=== PATIENT | female | born 1970 | race Two or more races ===

== ENCOUNTER 2017-01-21 11:11 | Emergency (ER) | payer SELFPAY ==
[2017-01-21 11:28] VITALS: BP 127/83
[2017-01-21] MEDS ORDERED: Sodium Chloride 0.9% 10 ML Syringe FLUSH PRN ×2 (12:01→14:11)
--- NOTE | 2017-01-21 12:10 | EDM.PDOC ---
ED HPI GENERAL MEDICAL PROBLEM - General Chief Complaint: Abdominal Pain Stated Complaint: ABDOMINAL PAIN Time Seen by Provider: 01/21/17 11:49 Source of Information: Reports: Patient History Limitations: Reports: No Limitations - History of Present Illness INITIAL COMMENTS - FREE TEXT/NARRATIVE: Patient is a 46 y/o kiswahili speaking female who presents to the E.D. complaining of left lower quadrant pain. States pain started two wks ago. Pain is intermittent with no known provoking factors. Described as crampy, sharp, and stinging in nature. Pain is localized with no radiation. Has taken tylenol and ibuprofen for pain relief. Currently rated a 4/10. She has no history of ovarian cysts, kidney stones, or diverituculi/diverticulitis. She has never had a EGD/Colonoscopy. Currently is sexually active with one male for almost 1 year utilizing protection. last menstrual cycle was 2 months ago states their is a chance of being . She denies fever/chills, n/v, cp, sob, dysuria, diarrhea, constipation, blood in stool, acid reflux, and or any additional complaints. She has history of DM 2 and is currently taking no medications. She has no PCP here in [place] since moving here 2 months ago. She denies surgical history as well. Left Lower Abdominal Pain Score (Numeric/FACES): 5 - Related Data Allergies Allergy/AdvReac Type Severity Reaction Status Date / Time No Known Allergies Allergy Verified 01/21/17 11:28 Home Meds: Home Meds . 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 Denies: Bloody Stool, Constipation, Diarrhea, Nausea, Vomiting : Denies: Dysuria, Frequency, Urgency Musculoskeletal: Denies: Back Pain Neurological: Denies: Dizziness ED EXAM, GI/ABD - Physical Exam Exam: See Below Exam Limited By: Language Barrier General Appearance: Alert, WD/WN, No Apparent Distress Ears: Hearing Grossly Normal Nose: Normal Inspection Throat/Mouth: Normal Voice, No Airway Compromise Head: Atraumatic, Normocephalic Neck: Normal Inspection, Supple, Non-Tender Respiratory/Chest: No Respiratory Distress, Lungs Clear, Normal Breath Sounds, Chest Non-Tender Cardiovascular: Normal Peripheral Pulses, Regular Rate, Rhythm GI/Abdominal Exam: Normal Bowel Sounds, Soft, No Organomegaly, Tender (to the left lower quadrant. ) Back Exam: Normal Inspection Neurological: Alert, Oriented, CN II-XII Intact, Normal Cognition, No Motor/ Sensory Deficits Psychiatric: Normal Affect, Normal Mood Skin Exam: Warm, Dry, Intact, Normal Color Course - Vital Signs Last Recorded V/S: Last Vital Signs Temp 97.3 F 01/21/17 11:19 Pulse 66 01/21/17 11:19 Resp 20 01/21/17 11:19 BP 127/83 01/21/17 11:19 Pulse Ox 98 01/21/17 11:19 - Orders/Labs/Meds Orders: Active Orders 24 hr Category Date Time Status Peripheral IV Care [RC] . DIRECTED Care 01/21/17 12:01 Active Sodium Chloride 0.9% [Normal Saline] 1,000 ml Med 01/21/17 12:15 Active IV ASDIRECTED Sodium Chloride 0.9% [Saline Flush] Med 01/21/17 12:01 Active 10 ml FLUSH ASDIRECTED PRN Sodium Chloride 0.9% [Saline Flush] Med 01/21/17 14:11 Active 10 ml FLUSH ONETIME PRN Peripheral IV Insertion Adult [OM.PC] Stat Oth 01/21/17 12:01 Ordered Medication Orders Sodium Chloride (Normal Saline) 1,000 mls @ 150 mls/hr IV ASDIRECTED TETE Last Admin: 01/21/17 12:17 Dose: 150 mls/hr Sodium Chloride (Saline Flush) 10 ml FLUSH ASDIRECTED PRN PRN Reason: Keep Vein Open Last Admin: 01/21/17 12:19 Dose: 10 ml Sodium Chloride (Saline Flush) 10 ml FLUSH ONETIME PRN PRN Reason: IV FLUSH Last Admin: 01/21/17 14:45 Dose: 10 ml Labs: Laboratory Tests 01/21/17 01/21/17 01/21/17 Range/Units 11:36 12:28 12:28 WBC 7.58 (3.98-10.04) K/mm3 RBC 4.84 (3.98-5.22) M/mm3 Hgb 13.5 (11.2-15.7) gm/L Hct 39.6 (34.1-44.9) % MCV 81.8 (79.4-94.8) fl MCH 27.9 (25.6-32.2) pg MCHC 34.1 (32.2-35.5) g/dl RDW Std Deviation 36.8 (36.4-46.3) fL Plt Count 274 (182-369) K/mm3 MPV 10.3 (9.4-12.3) fl Neut % (Auto) 57.7 (34.0-71.1) % Lymph % (Auto) 31.0 (19.3-51.7) % [place] % (Auto) 8.7 (4.7-12.5) % Eos % (Auto) 2.2 (0.7-5.8) Baso % (Auto) 0.3 (0.1-1.2) % Neut # (Auto) 4.37 (1.56-6.13) K/mm3 Lymph # (Auto) 2.35 (1.18-3.74) K/mm3 [place] # (Auto) 0.66 H (0.24-0.36) K/mm3 Eos # (Auto) 0.17 (0.04-0.36) K/mm3 Baso # (Auto) 0.02 (0.01-0.08) K/mm3 Sodium 141 (136-145) mEq/L Potassium 3.6 (3.5-5.1) mEq/L Chloride 105 (98-107) mEq/L Carbon Dioxide 27 (21-32) mEq/L Anion Gap 12.6 (5-15) BUN 6 L (7-18) mg/dL Creatinine 0.5 L (0.55-1.02) mg/dL Est Cr Clr Drug Dosing 118.77 mL/min Estimated GFR (MDRD) > 60 (>60) mL/min BUN/Creatinine Ratio 12.0 L (14-18) Glucose 127 H (74-106) mg/dL POC Glucose 125 H (70-105) mg/dL Calcium 8.9 (8.5-10.1) mg/dL Total Bilirubin 0.5 (0.2-1.0) mg/dL AST 16 (15-37) U/L ALT 30 (14-59) U/L Alkaline Phosphatase 91 (46-116) U/L C-Reactive Protein 1.3 H* (<1.0) mg/dL Total Protein 7.7 (6.4-8.2) g/dl Albumin 3.8 (3.4-5.0) g/dl Globulin 3.9 gm/dL Albumin/Globulin Ratio 1.0 (1-2) Lipase 65 L (73-393) U/L HCG, Qual (NEGATIVE) Urine Color (Yellow) Urine Appearance (Clear) Urine pH (5.0-8.0) Ur Specific [place] (1.005-1.030) Urine Protein (Negative) Urine Glucose (UA) (Negative) Urine Ketones (Negative) Urine Occult Blood (Negative) Urine Nitrite (Negative) Urine Bilirubin (Negative) Urine Urobilinogen (0.2-1.0) Ur Leukocyte Esterase (Negative) Urine RBC (0-5) /hpf Urine WBC (0-5) /hpf Ur Epithelial Cells Urine Bacteria (FEW) /hpf Urine Mucus (FEW) /hpf 01/21/17 01/21/17 Range/Units 12:28 12:55 WBC (3.98-10.04) K/mm3 RBC (3.98-5.22) M/mm3 Hgb (11.2-15.7) gm/L Hct (34.1-44.9) % MCV (79.4-94.8) fl MCH (25.6-32.2) pg MCHC (32.2-35.5) g/dl RDW Std Deviation (36.4-46.3) fL Plt Count (182-369) K/mm3 MPV (9.4-12.3) fl Neut % (Auto) (34.0-71.1) % Lymph % (Auto) (19.3-51.7) % [place] % (Auto) (4.7-12.5) % Eos % (Auto) (0.7-5.8) Baso % (Auto) (0.1-1.2) % Neut # (Auto) (1.56-6.13) K/mm3 Lymph # (Auto) (1.18-3.74) K/mm3 [place] # (Auto) (0.24-0.36) K/mm3 Eos # (Auto) (0.04-0.36) K/mm3 Baso # (Auto) (0.01-0.08) K/mm3 Sodium (136-145) mEq/L Potassium (3.5-5.1) mEq/L Chloride (98-107) mEq/L Carbon Dioxide (21-32) mEq/L Anion Gap (5-15) BUN (7-18) mg/dL Creatinine (0.55-1.02) mg/dL Est Cr Clr Drug Dosing mL/min Estimated GFR (MDRD) (>60) mL/min BUN/Creatinine Ratio (14-18) Glucose (74-106) mg/dL POC Glucose (70-105) mg/dL Calcium (8.5-10.1) mg/dL Total Bilirubin (0.2-1.0) mg/dL AST (15-37) U/L ALT (14-59) U/L Alkaline Phosphatase (46-116) U/L C-Reactive Protein (<1.0) mg/dL Total Protein (6.4-8.2) g/dl Albumin (3.4-5.0) g/dl Globulin gm/dL Albumin/Globulin Ratio (1-2) Lipase (73-393) U/L HCG, Qual Negative (NEGATIVE) Urine Color Light yellow (Yellow) Urine Appearance Clear (Clear) Urine pH 7.5 (5.0-8.0) Ur Specific [place] 1.015 (1.005-1.030) Urine Protein Negative (Negative) Urine Glucose (UA) Negative (Negative) Urine Ketones Negative (Negative) Urine Occult Blood Negative (Negative) Urine Nitrite Negative (Negative) Urine Bilirubin Negative (Negative) Urine Urobilinogen 0.2 (0.2-1.0) Ur Leukocyte Esterase Negative (Negative) Urine RBC Not seen (0-5) /hpf Urine WBC Not seen (0-5) /hpf Ur Epithelial Cells Not Reportable Urine Bacteria Not seen (FEW) /hpf Urine Mucus Not seen (FEW) /hpf Meds: Medications Generic Name Dose Route Start Last Admin Trade Name Freq PRN Reason Stop Dose Admin Sodium Chloride 1,000 mls @ 150 mls/hr 01/21/17 12:15 01/21/17 12:17 Normal Saline IV 150 mls/hr ASDIRECTED TETE Administration Sodium Chloride 10 ml 01/21/17 12:01 01/21/17 12:19 Saline Flush FLUSH 10 ml ASDIRECTED PRN Administration Keep Vein Open Sodium Chloride 10 ml 01/21/17 14:11 01/21/17 14:45 Saline Flush FLUSH 10 ml ONETIME PRN Administration IV FLUSH Discontinued Medications Generic Name Dose Route Start Last Admin Trade Name Camille PRN Reason Stop Dose Admin Diatrizoate Meglum/Diatrizoate Sod 90 ml 01/21/17 14:11 01/21/17 14:44 Gastrografin 37% PO 01/21/17 14:12 90 ml ONETIME ONE Administration Iopamidol 150 ml 01/21/17 14:11 01/21/17 14:45 Isovue-300 (61%) IVPUSH 01/21/17 14:12 125 ml ONETIME ONE Administration - Re-Assessments/Exams Free Text/Narrative Re-Assessment/Exam: IV was established normal saline. Initial labs and studies include CBC, chem 14 , hCG, CRP, lipase, and UA. Labs reviewed: CBC essentially normal. Sodium 141, potassium 3.6, AG is 12.6, creatinine 0.5, glucose 127, LFTs within normal limits, CRP 3.1.3, lipase 65, hCG negative. UA was negative for concerning findings. CT the abdomen and pelvis impression: Incidental findings. Nothing acute is appreciated. 01/21/17 16:21 Pain has subsided. Reviewed labs and CT study with patient. She is ready to be discharged home. Discharge instructions as documented. Departure - Departure Time of Disposition: 16:21 Disposition: Home, Self-Care 01 Condition: Good Clinical Impression: Abdominal pain Qualifiers: Abdominal location: periumbilical Qualified Code(s): R10.33 - Periumbilical pain - Discharge Information Instructions: Abdominal Pain, Adult, [id number] Referrals: PCP,None [Primary Care Provider] - Cece Dee PA [Physician Keg Washer] - Forms: ED Department Discharge Additional Instructions: As discussed CT the abdomen and pelvis did not reveal any acute findings. Lab work was essentially normal. Will have you follow-up with her PCP at [facility] in the next 1-2 weeks for reevaluation and treatment. Return to the ED as needed for any new or worsening symptoms. - My Orders Last 24 Hours: My Active Orders 01/21/17 12:01 Peripheral IV Care [RC] . DIRECTED Sodium Chloride 0.9% [Saline Flush] 10 ml FLUSH ASDIRECTED PRN Peripheral IV Insertion Adult [OM.PC] Stat 01/21/17 12:15 Sodium Chloride 0.9% [Normal Saline] 1,000 ml IV ASDIRECTED 01/21/17 14:11 Sodium Chloride 0.9% [Saline Flush] 10 ml FLUSH ONETIME PRN - Assessment/Plan Last 24 Hours: My Active Orders 01/21/17 12:01 Peripheral IV Care [RC] . DIRECTED Sodium Chloride 0.9% [Saline Flush] 10 ml FLUSH ASDIRECTED PRN Peripheral IV Insertion Adult [OM.PC] Stat 01/21/17 12:15 Sodium Chloride 0.9% [Normal Saline] 1,000 ml IV ASDIRECTED 01/21/17 14:11 Sodium Chloride 0.9% [Saline Flush] 10 ml FLUSH ONETIME PRN
[2017-01-21] MEDS ORDERED: Sodium Chloride 0.9% 1,000 ML IV SCH (12:15)
[2017-01-21] MEDS ORDERED: Diatrizoate Meglumine/Diatrizoate Sodium 37% 120 ML Bottle PO ONE (14:11)
[2017-01-21] MEDS ORDERED: Iopamidol 612 MG/ML 150 ML Bottle IVPUSH ONE (14:11)
--- NOTE | 2017-01-21 15:26 | CT ---
CT abdomen and pelvis Technique: Multiple axial sections were obtained from above the dome of the diaphragm inferiorly through the pubic symphysis. Intravenous and oral contrast was utilized. Delayed images were obtained through the bladder. Comparison: No previous study. Findings: Small portion of the visualized lung bases shows nothing acute. Liver shows no focal parenchymal abnormality. Small hiatal hernia is seen. Spleen appears within normal limits. Adrenal glands show no nodule. Gallbladder shows no calcified gallstones. Kidneys show contrast enhancement without hydronephrosis or mass. Aorta shows no aneurysmal dilatation. No retroperitoneal adenopathy or mesenteric abnormalities are seen. No pelvic mass or adenopathy is identified. Appendix is within the right upper quadrant adjacent to the inferior liver. Appendix is normal in size. No inflammatory change or free fluid is seen. No bowel dilatation is seen. Small fat-containing umbilical hernia is noted. Bone window settings were reviewed showing small limbus type vertebra involving the superior and anterior endplates of L4 and L5. Delayed images shows contrast within the distal ureters and bladder. Impression: 1. Incidental findings. Nothing acute is appreciated. Diagnostic code #2
== END 2017-01-21 16:43 | disposition home or self-care (01) ==
LOC: JD.ED 11:11
DX: R10.33 Periumbilical pain (principal); E11.9 Type 2 diabetes mellitus without complications
CPT/HCPCS: 36415; 74177; 80053; 81001; 82962; 83690; 84703; 85025; 86140; 96360; 96361; 99284; J7040; J7050; Q9963; Q9967

== ENCOUNTER 2019-03-23 09:57 | Emergency (ER) | payer SELFPAY ==
[2019-03-23 10:12] VITALS: BP 156/96; PULSE 74
[2019-03-23] MEDS ORDERED: Sodium Chloride 0.9% 10 ML Syringe FLUSH PRN (10:20)
--- NOTE | 2019-03-23 10:49 | EDM.PDOC ---
ED HPI GENERAL MEDICAL PROBLEM - General Chief Complaint: ENT Problem Stated Complaint: SORE THROAT Time Seen by Provider: 03/23/19 10:51 - History of Present Illness INITIAL COMMENTS - FREE TEXT/NARRATIVE: Since unfortunate 48-year-old female who presents emergency Department today with complaint of sore throat. She reports that she was in her normal state of health until 2 weeks ago and she started having a sore throat and chest pain. Patient describes her pain as a "pressure". The anterior portion of her left chest. Patient has history of diabetes no known cardiac disease patient reports she has not seen a copy coordinator in the past has not had a stress test or a station. No nausea no vomiting no fever no chills no shortness of breath or difficulty swallowing. Patient is tender to palpation across the anterior surface of her chest long left sternal border. 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 Denies: Throat Swelling Respiratory: Denies: Shortness of Breath, Wheezing Cardiovascular: Reports: Chest Pain. Denies: Blood Pressure Problem, Claudication, Dyspnea on Exertion GI/Abdominal: Denies: Abdominal Pain, Nausea, Vomiting ED EXAM, GENERAL - Physical Exam Exam: See Below Exam Limited By: Other (Patient is Citizen Of [place]-speaking only and conflict resolution professional was present in room) General Appearance: Alert, Mild Distress Ears: Normal External Exam, Normal Canal, Hearing Grossly Normal, Normal TMs Throat/Mouth: Normal Inspection, Normal Lips, Normal Teeth, Normal Gums, Normal Oropharynx, Normal Voice, No Airway Compromise, Other (Pulses 2+ bilaterally) Head: Atraumatic, Normocephalic Neck: Normal Inspection, Supple, Non-Tender, Full Range of Motion Respiratory/Chest: No Respiratory Distress, Lungs Clear, Normal Breath Sounds, No Accessory Muscle Use, Chest Non-Tender Cardiovascular: Normal Peripheral Pulses, Regular Rate, Rhythm, No Edema, No Gallop, No JVD, No Murmur, No Rub, Other (Mild tenderness left sternal border, at the third fourth intercostal space) GI/Abdominal: Normal Bowel Sounds, Soft, Non-Tender, No Organomegaly, No Distention, No Abnormal Bruit, No Mass Back Exam: Normal Inspection, Full Range of Motion, NT Extremities: Normal Inspection, Normal Range of Motion, Non-Tender, Normal Capillary Refill, No Pedal Edema Neurological: Alert, Oriented, CN II-XII Intact, Normal Cognition, Normal Gait, Normal Reflexes, No Motor/Sensory Deficits Skin Exam: Warm, Dry, Intact, Normal Color, No Rash Lymphatic: No Adenopathy EKG INTERPRETATION EKG Date: 03/23/19 Time: 10:49 Rhythm: NSR Arthur: Normal P-Wave: Present QRS: Normal ST-T: Normal QT: Normal Course - Vital Signs Last Recorded V/S: Last Vital Signs Temp 98.3 F 03/23/19 10:09 Pulse 74 03/23/19 10:09 Resp 16 03/23/19 10:09 BP 156/96 H 03/23/19 10:09 Pulse Ox 97 03/23/19 10:09 - Orders/Labs/Meds Orders: Active Orders 24 hr Category Date Time Status EKG Documentation Completion [RC] ASDIRECTED Care 03/23/19 10:20 Active Sodium Chloride 0.9% [Saline Flush] Med 03/23/19 10:20 Active 10 ml FLUSH ASDIRECTED PRN Saline Lock Insert [OM.PC] Routine Oth 03/23/19 10:20 Ordered EKG 12 Lead [EK] Stat Ther 03/23/19 10:19 Ordered Medication Orders Sodium Chloride (Saline Flush) 10 ml FLUSH ASDIRECTED PRN PRN Reason: Keep Vein Open Last Admin: 03/23/19 11:02 Dose: 10 ml Labs: Laboratory Tests 03/23/19 03/23/19 03/23/19 Range/Units 10:44 10:44 10:44 WBC 6.83 (3.98-10.04) K/mm3 RBC 5.31 H (3.98-5.22) M/mm3 Hgb 14.3 (11.2-15.7) gm/dl Hct 42.7 (34.1-44.9) % MCV 80.4 (79.4-94.8) fl MCH 26.9 (25.6-32.2) pg MCHC 33.5 (32.2-35.5) g/dl RDW Std Deviation 37.1 (36.4-46.3) fL Plt Count 250 (182-369) K/mm3 MPV 10.5 (9.4-12.3) fl Neut % (Auto) 60.2 (34.0-71.1) % Lymph % (Auto) 31.2 (19.3-51.7) % [place] % (Auto) 7.2 (4.7-12.5) % Eos % (Auto) 1.2 (0.7-5.8) Baso % (Auto) 0.1 (0.1-1.2) % Neut # (Auto) 4.11 (1.56-6.13) K/mm3 Lymph # (Auto) 2.13 (1.18-3.74) K/mm3 [place] # (Auto) 0.49 H (0.24-0.36) K/mm3 Eos # (Auto) 0.08 (0.04-0.36) K/mm3 Baso # (Auto) 0.01 (0.01-0.08) K/mm3 Sodium 140 (136-145) mEq/L Potassium 4.0 (3.5-5.1) mEq/L Chloride 104 (98-107) mEq/L Carbon Dioxide 28 (21-32) mEq/L Anion Gap 12.0 (5-15) BUN 12 (7-18) mg/dL Creatinine 0.6 (0.55-1.02) mg/dL Est Cr Clr Drug Dosing 84.15 mL/min Estimated GFR (MDRD) > 60 (>60) mL/min BUN/Creatinine Ratio 20.0 H (14-18) Glucose 341 H (74-106) mg/dL Calcium 9.5 (8.5-10.1) mg/dL Total Bilirubin 0.4 (0.2-1.0) mg/dL AST 21 (15-37) U/L ALT 58 (14-59) U/L Alkaline Phosphatase 139 H (46-116) U/L Troponin I < 0.017 (0.00-0.056) ng/mL Total Protein 7.8 (6.4-8.2) g/dl Albumin 3.8 (3.4-5.0) g/dl Globulin 4.0 gm/dL Albumin/Globulin Ratio 1.0 (1-2) Lipase 63 L (73-393) U/L HCG, Qual Negative (NEGATIVE) Meds: Medications Generic Name Dose Route Start Last Admin Trade Name Freq PRN Reason Stop Dose Admin Sodium Chloride 10 ml 03/23/19 10:20 03/23/19 11:02 Saline Flush FLUSH 10 ml ASDIRECTED PRN Administration Keep Vein Open - Re-Assessments/Exams Free Text/Narrative Re-Assessment/Exam: 03/23/19 11:04 Chest x-ray interpreted by me in NAD Free Text/Narrative Re-Assessment/Exam: 03/23/19 12:45 Patient's had no change in symptoms since arrival, patient's heart score is 2 and is low risk we'll discharge her home do not feel at this time a repeat troponin is necessary, she needs to take her antidiabetic medication as previously prescribed however she reports that it makes her shake all over when she takes it which is why she is not taking and she has not notified her doctor she decided to stop taking her medication, we'll refer patient back to PCP for follow-up and Rx ibuprofen for pain in her throat and chest Departure - Departure Time of Disposition: 12:46 Disposition: Home, Self-Care 01 Condition: Good Clinical Impression: Costochondritis Pharyngitis Qualifiers: Pharyngitis/tonsillitis etiology: unspecified etiology Qualified Code(s): J02.9 - Acute pharyngitis, unspecified Prescriptions: Ibuprofen 800 mg PO TID #15 tablet Referrals: PCP,Unknown [Ordering Only Provider] - Forms: ED Department Discharge Additional Instructions: Home, rest, you need to follow up with your PCP and get back on your diabetic medication, return as needed for worsening condition - My Orders Last 24 Hours: My Active Orders 03/23/19 10:19 EKG 12 Lead [EK] Stat 03/23/19 10:20 EKG Documentation Completion [RC] ASDIRECTED Sodium Chloride 0.9% [Saline Flush] 10 ml FLUSH ASDIRECTED PRN Saline Lock Insert [OM.PC] Routine - Assessment/Plan Last 24 Hours: My Active Orders 03/23/19 10:19 EKG 12 Lead [EK] Stat 03/23/19 10:20 EKG Documentation Completion [RC] ASDIRECTED Sodium Chloride 0.9% [Saline Flush] 10 ml FLUSH ASDIRECTED PRN Saline Lock Insert [OM.PC] Routine
--- NOTE | 2019-03-23 11:18 | CR ---
Chest: Two views of the chest were obtained. Comparison: No prior chest x-ray. Heart size and mediastinum are normal. Lungs are clear with no acute parenchymal change. Bony structures appear within normal limits. Impression: 1. Nothing acute is appreciated on two-view chest x-ray. Diagnostic code #1
== END 2019-03-23 13:09 | disposition home or self-care (01) ==
LOC: JD.ED 09:57
DX: M94.0 Chondrocostal junction syndrome [Tietze] (principal); J02.9 Acute pharyngitis, unspecified; E11.9 Type 2 diabetes mellitus without complications
CPT/HCPCS: 36415; 71046; 71046-26; 80053; 83690; 84484; 84703; 85025; 93005; 93010; 99284; 99285-25

== ENCOUNTER 2019-05-26 11:54 | Emergency (ER) | payer SELFPAY ==
[2019-05-26 12:09] VITALS: BP 130/87; PULSE 61
[2019-05-26] MEDS ORDERED: Ketorolac 60 MG/2 ML SDV IM ONE (13:50)
--- NOTE | 2019-05-26 14:08 | EDM.PDOC ---
ED HPI GENERAL MEDICAL PROBLEM - General Chief Complaint: Upper Extremity Injury/Pain Stated Complaint: FELL HURT RIGHT ARM Time Seen by Provider: 05/26/19 12:07 Source of Information: Reports: Patient, RN Notes Reviewed - History of Present Illness INITIAL COMMENTS - FREE TEXT/NARRATIVE: 48 rolled female comes in with severe right shoulder pain. She slipped and fell on some ice 2 days ago landing on the right arm and shoulder. At times she has had quite severe discomfort of the right shoulder, right upper arm. The pain is worse with motion. She did not injure her head and neck or back. No chest pain or difficulty breathing. 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: Endocrine/Metabolic History: Reports: Diabetes, Type II Social & Family History - Family History Family Medical History: Noncontributory - Tobacco Use Smoking Status *Q: Never Smoker - Caffeine Use Caffeine Use: Reports: Coffee - Recreational Drug Use Recreational Drug Use: No Review of Systems - Review of Systems Review Of Systems: See Below Constitutional: Denies: Chills, Fever Eyes: Reports: No Symptoms Ears: Reports: No Symptoms Mouth/Throat: Reports: No Symptoms Respiratory: Denies: Shortness of Breath, Pleuritic Chest Pain Cardiovascular: Denies: Chest Pain GI/Abdominal: Denies: Abdominal Pain, Nausea, Vomiting Musculoskeletal: Reports: Shoulder Pain, Arm Pain. Denies: Back Pain Skin: Reports: No Symptoms Neurological: Reports: No Symptoms ED EXAM, GENERAL - Physical Exam Exam: See Below General Appearance: Alert, Mild Distress Eye Exam: Bilateral Eye: PERRL Nose: Normal Inspection Head: Atraumatic. No: Facial Swelling Neck: Supple, Non-Tender Respiratory/Chest: No Respiratory Distress, Lungs Clear Cardiovascular: Regular Rate, Rhythm Extremities: Other (There is diffuse tenderness of the right shoulder and right upper arm, increased pain with motion, no visible swelling, no visible deformity , no warmth or erythema) Neurological: Alert, Oriented, No Motor/Sensory Deficits Course - Vital Signs Last Recorded V/S: Last Vital Signs Temp 97.3 F 05/26/19 12:04 Pulse 61 05/26/19 12:04 Resp 14 05/26/19 12:04 BP 130/87 05/26/19 12:04 Pulse Ox 97 05/26/19 12:04 - Orders/Labs/Meds Orders: Active Orders 24 hr Category Date Time Status DME for Discharge [COMM] Routine Oth 05/26/19 14:39 Ordered Meds: Medications Discontinued Medications Generic Name Dose Route Start Last Admin Trade Name Freq PRN Reason Stop Dose Admin Ketorolac Tromethamine 60 mg 05/26/19 13:50 05/26/19 14:36 Toradol IM 05/26/19 13:51 60 mg ONETIME ONE Administration - Re-Assessments/Exams Free Text/Narrative Re-Assessment/Exam: 05/27/19 08:48 X-rays of the shoulder were negative for fracture, discharge instructions as documented Departure - Departure Time of Disposition: 14:01 Disposition: Home, Self-Care 01 Condition: Fair Clinical Impression: Fall, Shoulder contusion - Discharge Information Prescriptions: Acetaminophen/HYDROcodone [[place] 325-5 MG] 1 tab PO Q6H PRN #14 tablet PRN Reason: Pain Instructions: Contusion Referrals: PCP,None [Primary Care Provider] - Forms: ED Department Discharge Additional Instructions: tylenol or acetaminophen q 6 to 8 hr as needed for pain or hydrocodone if needed for severe pain. Do not take both medications at the same time, one or the other. Arm sling as needed. Ice packs 2 to 3 times daily as needed. Prescription for hydrocodone [facility] Follow up clinic if not much better within 5 to 7 days as expected. Sepsis Event Note - Evaluation Sepsis Screening Result: No Definite Risk - Focused Exam Date Exam was Performed: 05/27/19 Time Exam was Performed: 08:44 - My Orders Last 24 Hours: My Active Orders 05/26/19 14:39 DME for Discharge [COMM] Routine - Assessment/Plan Last 24 Hours: My Active Orders 05/26/19 14:39 DME for Discharge [COMM] Routine
--- NOTE | 2019-05-26 15:54 | CR ---
Right shoulder: Three views of the right shoulder were obtained. Comparison: No previous shoulder study. Glenohumeral joint and acromioclavicular joint appears within normal limits. Degenerative endplate spurring is noted within the spine. Soft tissue calcification is seen above the greater tuberosity of the right shoulder compatible with calcific tendinitis. Impression: 1. Calcific tendinitis. 2. Endplate spurring within the spine. Diagnostic code #3 This report was dictated in [place] Standard Time
== END 2019-05-26 14:42 | disposition home or self-care (01) ==
LOC: JD.ED 11:54
DX: S40.011A Contusion of right shoulder, initial encounter (principal); E11.9 Type 2 diabetes mellitus without complications; W00.0XXA Fall on same level due to ice and snow, initial encounter
CPT/HCPCS: 73030; 96372; 99283; J1885

== ENCOUNTER 2020-02-13 23:21 | Emergency (ER) | payer SELFPAY ==
[2020-02-13 23:39] VITALS: BP 131/80; PULSE 70
--- NOTE | 2020-02-14 00:49 | EDM.PDOC ---
ED HPI GENERAL MEDICAL PROBLEM - General Chief Complaint: Back Pain or Injury Stated Complaint: BACK PAIN Time Seen by Provider: 02/14/20 00:05 Source of Information: Reports: Patient History Limitations: Reports: Language Barrier, Other (Consuelo her daughter was on the telephone and we use the speaker phone to help understand the patient and translate my message to the patient.) - History of Present Illness INITIAL COMMENTS - FREE TEXT/NARRATIVE: This is a 49-year-old female. She says she been having intermittent mid back right-sided pain. 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 It started yesterday in the mid back and she notices that movement makes it worse. She has had no cough no fever no chills. She has had no low back pain and no neck pain. She denies any other acute symptoms. 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: Endocrine/Metabolic History: Reports: Diabetes, Type II - Past Surgical History Endocrine Surgical History: Reports: None Social & Family History - Family History Family Medical History: Noncontributory - Tobacco Use Smoking Status *Q: Never Smoker Second Hand Smoke Exposure: No - Caffeine Use Caffeine Use: Reports: None - Recreational Drug Use Recreational Drug Use: No ED ROS GENERAL - Review of Systems Review Of Systems: See Below Constitutional: Denies: Fever, Chills HEENT: Reports: No Symptoms Respiratory: Denies: Shortness of Breath, Cough Cardiovascular: Reports: No Symptoms Endocrine: Reports: No Symptoms GI/Abdominal: Reports: No Symptoms : Reports: No Symptoms Musculoskeletal: Reports: Back Pain Skin: Reports: No Symptoms Neurological: Reports: No Symptoms Psychiatric: Reports: No Symptoms Hematologic/Lymphatic: Reports: No Symptoms ED EXAM, UPPER BACK/NECK PAIN - Physical Exam Exam: See Below Exam Limited By: No Limitations General Appearance: Alert, WD/WN, No Apparent Distress Eye Exam: Bilateral Eye: Normal Inspection Ears Exam: Normal External Exam Nose Exam: Normal Inspection Throat/Mouth Exam: Normal Voice, No Airway Compromise Head Exam: Normocephalic Neck Exam: Non-Tender, Full Range of Motion Back Exam: Normal Inspection, Full Range of Motion, Other (He has tenderness in the mid thoracic right-sided paraspinal muscles. There is no midline spine pain and no left-sided pain. She is got no lower back tenderness noted. Movement of her right arm especially overhead seems to aggravate her right sided mid back pain.) Extremities: Normal Inspection, Normal Range of Motion Neurologic: No Motor/Sensory Deficits, Alert, Oriented x 3 Psychiatric: Normal Affect, Normal Mood Skin Exam: Normal Color, Warm/Dry Course - Vital Signs Last Recorded V/S: Last Vital Signs Temp 96.9 F 02/13/20 23:35 Pulse 70 02/13/20 23:35 Resp 20 02/13/20 23:35 BP 131/80 02/13/20 23:35 Pulse Ox 98 02/13/20 23:35 Departure - Departure Time of Disposition: 00:46 Disposition: Home, Self-Care 01 Condition: Good Clinical Impression: Back muscle spasm Thoracic back sprain Qualifiers: Encounter type: initial encounter Qualified Code(s): S23.9XXA - Sprain of unspecified parts of thorax, initial encounter - Discharge Information *PRESCRIPTION DRUG MONITORING PROGRAM REVIEWED*: Not Applicable *COPY OF PRESCRIPTION DRUG MONITORING REPORT IN PATIENT EZEKIEL: Not Applicable Prescriptions: Cyclobenzaprine [Flexeril] 5 mg PO Q8H PRN #15 tab PRN Reason: Spasms Instructions: Muscle Strain, [id number], Muscle Cramps and Spasms, [id number] Additional Instructions: Use ice or heat to your back to help with the soreness, take a break from painting because that is what is causing your muscle pain, use the medicine for muscle spasms to help relax them and use it as needed, recheck with your family doctor later this week, return to the ER if needed Sepsis Event Note (ED) - Evaluation Sepsis Screening Result: No Definite Risk - Focused Exam Vital Signs: Vital Signs Temp Pulse Resp BP Pulse Ox 02/13/20 23:35 96.9 F 70 20 131/80 98
[2020-02-14] MEDS ORDERED: Cyclobenzaprine 10 MG Tab PO ONE (00:51)
== END 2020-02-14 01:01 | disposition home or self-care (01) ==
LOC: JD.ED 23:21
DX: S23.3XXA Sprain of ligaments of thoracic spine, initial encounter (principal); M62.830 Muscle spasm of back; E11.9 Type 2 diabetes mellitus without complications; X58.XXXA Exposure to other specified factors, initial encounter
CPT/HCPCS: 99283; A9270

== ENCOUNTER 2020-02-29 19:27 | Emergency (ER) | payer SELFPAY ==
[2020-02-29 19:37] VITALS: BP 130/94; PULSE 95
--- NOTE | 2020-02-29 19:53 | EDM.PDOC ---
ED HPI GENERAL MEDICAL PROBLEM - General Chief Complaint: ENT Problem Stated Complaint: SORE THROAT Time Seen by Provider: 02/29/20 19:38 Source of Information: Reports: Patient History Limitations: Reports: No Limitations - History of Present Illness INITIAL COMMENTS - FREE TEXT/NARRATIVE: Patient is a 49 year old female presenting to the er with c/o sore throat and intermittent headaches x 1 week. She denies fever, chills, cough, SOB, abdominal pain, nausea, or vomiting. She has taken nothing for pain today. Throat Pain Score (Numeric/FACES): 7 - Related Data Allergies Allergy/AdvReac Type Severity Reaction Status Date / Time No Known Allergies Allergy Verified 02/29/20 19:37 Home Meds: Home Meds . 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 Denies: Fever, Chills, Weakness HEENT: Reports: Throat Pain. Denies: Rhinitis, Sinus Problem Respiratory: Reports: No Symptoms. Denies: Shortness of Breath, Cough Cardiovascular: Reports: No Symptoms Endocrine: Reports: No Symptoms GI/Abdominal: Reports: No Symptoms : Reports: No Symptoms Musculoskeletal: Reports: No Symptoms Skin: Reports: No Symptoms Neurological: Reports: Headache. Denies: Confusion, Dizziness Psychiatric: Reports: No Symptoms Hematologic/Lymphatic: Reports: No Symptoms Immunologic: Reports: No Symptoms ED EXAM, ENT - Physical Exam Exam: See Below General Appearance: Alert, WD/WN, No Apparent Distress Mouth/Throat: Normal Inspection, Normal Gums, Normal Lips, Normal Teeth, Tonsillar Erythema, Tonsillar Swelling. No: Throat Swelling, Tongue Swelling, Tonsillar Exudates Neck: Normal Inspection, Supple, Non-Tender, Full Range of Motion Respiratory/Chest: No Respiratory Distress, Lungs Clear, Normal Breath Sounds, No Accessory Muscle Use, Chest Non-Tender Cardiovascular: Normal Peripheral Pulses, Regular Rate, Rhythm, No Edema, No Gallop, No JVD, No Murmur, No Rub GI/Abdominal: Normal Bowel Sounds, Soft, Non-Tender, No Organomegaly, No Diste ntion, No Abnormal Bruit, No Mass Neurological: Alert, Oriented, CN II-XII Intact, Normal Cognition, Normal Gait, Normal Reflexes, No Motor/Sensory Deficits Psychiatric: Normal Affect, Normal Mood Skin: Warm, Dry, Intact, Normal Color, No Rash Course - Vital Signs Last Recorded V/S: Last Vital Signs Temp 96.9 F 02/29/20 19:34 Pulse 95 02/29/20 19:34 Resp 18 02/29/20 19:34 BP 130/94 H 02/29/20 19:34 Pulse Ox 99 02/29/20 19:34 - Orders/Labs/Meds Orders: Active Orders 24 hr Category Date Time Status CULTURE STREP A CONFIRMATION [RM] Stat Lab 02/29/20 19:49 Results Rapid Strep w/culture conf [STREP SCRN A RAPID W CULT Lab 02/29/20 19:49 Results CONF] [RM] Stat - Re-Assessments/Exams Free Text/Narrative Re-Assessment/Exam: Patient is a 49-year-old female presenting to the emergency department complaints of sore throat and intermittent headache for the asked week. She denies any other respiratory complaints, fever, or chills. On exam, she does have some mild tonsillar erythema, however there are no exudates present. Lung sounds are clear. We will complete a rapid today. If that is negative we will test her for coronavirus. 02/29/20 20:17 Rapid strep was negative. Discussed that the swab will be sent for culture and if this should grow out a different strain of strep, she will be notified and antibiotics will be started. We will complete a public health coronavirus test today recommend quarantine until results are available. Discussed use of [id number] Tylenol and ibuprofen as needed. She may also use Chloraseptic throat spray. Return to ER as needed. Discharge instructions as documented. Departure - Departure Time of Disposition: 20:18 Disposition: Home, Self-Care 01 Condition: Good Clinical Impression: Pharyngitis Qualifiers: Pharyngitis/tonsillitis etiology: unspecified etiology Qualified Code(s): J02.9 - Acute pharyngitis, unspecified - Discharge Information *PRESCRIPTION DRUG MONITORING PROGRAM REVIEWED*: No *COPY OF PRESCRIPTION DRUG MONITORING REPORT IN PATIENT EZEKIEL: No Instructions: Pharyngitis, [id number] Referrals: PCP,None [Primary Care Provider] - Forms: ED Department Discharge Additional Instructions: You were seen in the emergency department today for sore throat x1 week and intermittent headache. A rapid strep test was completed and found to be negative. Likely cause your sore throat is viral in nature. A coronavirus test has been completed and you will be notified of these results when they are available. Recommend that you isolate until test results are available. You may use [id number] Tylenol or ibuprofen as needed for discomfort. [id number] Chloraseptic throat spray will also help reduce the pain. You should experience any new or worsening symptoms of concern, please not hesitate to return to the emergency department. Sepsis Event Note (ED) - Evaluation Sepsis Screening Result: No Definite Risk - Focused Exam Vital Signs: Vital Signs Temp Pulse Resp BP Pulse Ox 02/29/20 19:34 96.9 F 95 18 130/94 H 99 - My Orders Last 24 Hours: My Active Orders 02/29/20 19:49 CULTURE STREP A CONFIRMATION [RM] Stat Rapid Strep w/culture conf [STREP SCRN A RAPID W CULT CONF] [RM] Stat - Assessment/Plan Last 24 Hours: My Active Orders 02/29/20 19:49 CULTURE STREP A CONFIRMATION [RM] Stat Rapid Strep w/culture conf [STREP SCRN A RAPID W CULT CONF] [RM] Stat
== END 2020-02-29 20:30 | disposition home or self-care (01) ==
LOC: JD.ED 19:27
DX: J02.9 Acute pharyngitis, unspecified (principal); E11.9 Type 2 diabetes mellitus without complications; Z20.828 Contact with and (suspected) exposure to other viral communicable diseases
CPT/HCPCS: 87081; 87430; 99282; 99283; U0002